=== PATIENT | male | born 1990 | race American Indian/Alaskan Native ===

== ENCOUNTER 2016-05-16 10:05 | Emergency (ER) | payer SELFPAY ==
[2016-05-16 10:24] VITALS: BMI 32.1
[2016-05-16 10:27] VITALS: RESP 16; TEMP 98; O2SAT 100
--- NOTE | 2016-05-16 11:04 | ED PDOC ---
Arrival/HPI - General Historian: Patient - History of Present Illness Severity Level: 7 <Armando Joseph - Last Filed: 05/16/16 10:55> <Benito Valentin - Last Filed: 05/16/16 11:54> - General Chief Complaint: Lower Extremity Problem/Injury Time Seen by Provider: 05/16/16 10:37 - History of Present Illness Narrative History of Present Illness (Text): 05/16/16 10:55 This is a 25 year old male presenting with right anterior knee pain x 5 days. The patient reports mechanical fall on ice 5 days ago and impact with a shopping cart to the knee at work 2 days ago. The patient reports pain with ambulation and weight bearing. The patient has been managing the pain at home with OTC avil with good effect. Patient is ambulatory. (Armando Joseph) Past Medical History - Provider Review Nursing Documentation Reviewed: Yes - Travel History Have you recently traveled outside [place] w/in the past 3 mons?: No - Past History Past History: Non-Contributing - Infectious Disease Hx of Infectious Diseases: None - Tetanus Immunization Tetanus Immunization: Unknown - Musculoskeletal/Rheumatological Hx Falls: No - Psychiatric Hx Depression: No Hx Emotional Abuse: No Hx Physical Abuse: No Hx Substance Use: No - Suicidal Assessment Feels Threatened In Home Enviroment: No <Armando Joseph - Last Filed: 05/16/16 10:55> Family/Social History - Physician Review Nursing Documentation Reviewed: Yes Family/Social History: No Known Family HX Smoking Status: Never Smoked Hx Alcohol Use: Yes Frequency of alcohol use: Socially Hx Substance Use: No Hx Substance Use Treatment: No <Armando Joseph - Last Filed: 05/16/16 10:55> Allergies/Home Meds <Armando Joseph - Last Filed: 05/16/16 10:55> <Benito Valentin - Last Filed: 05/16/16 11:54> Allergies/Adverse Reactions: Allergies No Known Allergies Allergy (Verified 05/16/16 10:24) Home Medications: Home Meds Medication Instructions Recorded Confirmed No Known Home Med 05/16/16 05/16/16 Review of Systems - Physician Review All systems were reviewed & negative as marked: Yes - Review of Systems Constitutional: absent: Fatigue Eyes: absent: Vision Changes ENT: absent: Hearing Changes Respiratory: absent: SOB, Cough Cardiovascular: absent: Chest Pain, Palpitations Gastrointestinal: absent: Abdominal Pain, Vomiting Genitourinary Male: absent: Dysuria, Frequency Musculoskeletal: Arthralgias, Joint Swelling. absent: Back Pain, Neck Pain, Myalgias Skin: absent: Rash, Pruritis Neurological: absent: Headache, Dizziness Endocrine: absent: Diaphoresis Hemo/Lymphatic: absent: Adenopathy Psychiatric: absent: Anxiety <Armando Joseph - Last Filed: 05/16/16 10:55> Physical Exam Vital Signs Reviewed: Yes Temperature: Afebrile Blood Pressure: Normal Pulse: Regular Respiratory Rate: Normal Appearance: Positive for: Well-Appearing, Non-Toxic, Comfortable Pain Distress: None Mental Status: Positive for: Alert and Oriented X 3 - Systems Exam Head: Present: Atraumatic, Normocephalic Pupils: Present: PERRL Extroacular Muscles: Present: EOMI Mouth: Present: Moist Mucous Membranes Respiratory/Chest: Present: Clear to Auscultation, Good Air Exchange. No: Respiratory Distress, Accessory Muscle Use Cardiovascular: Present: Regular Rate and Rhythm, Normal S1, S2. No: Murmurs Abdomen: Present: Normal Bowel Sounds. No: Tenderness, Distention, Peritoneal Signs Upper Extremity: Present: Normal Inspection, Normal ROM, NORMAL PULSES, Neurovascularly Intact. No: Cyanosis, Edema, Tenderness, Swelling Lower Extremity: Present: Normal Inspection, NORMAL PULSES, Normal ROM (able to fully weight bear and ambulate without issue, no ligamentous laxity on exam, no palpable step-off in patella, itact quadricept function without pain, ne joint effusion), Tenderness (anterior patella), Neurovascularly Intact. No: Edema, Swelling, Temperature Abnormalties Neurological: Present: GCS=15, CN II-XII Intact Skin: Present: Warm Psychiatric: Present: Alert, Oriented x 3 <Armando Joseph - Last Filed: 05/16/16 10:55> Vital Signs Temp Pulse Resp BP Pulse Ox 05/16/16 11:51 78 16 140/63 100 05/16/16 10:26 98.0 F 72 16 136/68 100 Medical Decision Making <Armadno Joseph - Last Filed: 05/16/16 10:55> <Benito Valentin - Last Filed: 05/16/16 11:54> ED Course and Treatment: 05/16/16 11:23 Impression: This is a 25 year old male presenting with right anterior knee pain x 5 days. The patient appears in no acute distress. No acute pain. Patient ambulatory. Differential: Contusion Plan: Continue home anti-inflammatory medications Prior Visits: Progress Note: The patient was seen and examined at the bedside. Patient in no acute distress. Patient able to stand on right leg and fully support weight without issue. Patient ambulatory without issue. The patient has no ligamentous laxity and has a structurally sound knee. The patient was advised to weight bear as tolerated, continue home anti-inflammatory medications. The patient is fit to return to work. The patient is agreeable with the discharge plan. The patient was medically stable for discharge. (Armando Joseph) A 25 year old male with right knee pain. In agreement with resident note, which includes further HPI details. Patient was seen and evaluated with resident, came up with plan and treatment together. (Benito Valentin) - PA / FILTRATION SUPERVISOR / Resident Statement / has reviewed & agrees with the documentation as recorded. / has examined the patient and agrees with the treatment plan. <Benito Valentin - Last Filed: 05/16/16 11:54> Disposition/Present on Arrival - Present on Arrival Any Indicators Present on Arrival: No History of DVT/PE: No History of Uncontrolled Diabetes: No Urinary Catheter: No History of Decub. Ulcer: No History Surgical Site Infection Following: None - Disposition Have Diagnosis and Disposition been Completed?: Yes Disposition Time: 11:15 Patient Plan: Discharge <Armando Joseph - Last Filed: 05/16/16 10:55> <Benito Valentin - Last Filed: 05/16/16 11:54> - Disposition Diagnosis: Knee pain, acute Disposition: HOME/ ROUTINE Condition: GOOD Discharge Instructions (ExitCare): Knee Pain (ED) Print Language: BULGARIAN Additional Instructions: 1.) Weight bearing as tolerated 2.) Safe for return to work 3.) Continue home anti-inflammatory medications in accordance with medication directions 4.) Follow up with PMD or in the [facility]. 5.) If symptoms return, please return to the ED for evaluation. 6.) If pain does no decrease please follow up with orthopedics (Dr. Quiros) Referrals: Enzo Quiros MD [Staff Provider] - Follow up with primary
[2016-05-16 11:52] VITALS: BP 140/63; PULSE 78
== END 2016-05-16 11:51 | disposition home or self-care (01) ==
LOC: ED 10:05
DX: M25.561 Pain in right knee (principal)

== ENCOUNTER 2016-09-24 02:22 | Emergency (ER) | payer SELFPAY ==
[2016-09-24 02:23] VITALS: BMI 32.1
[2016-09-24 02:48] VITALS: BP 130/83; PULSE 84; RESP 16; TEMP 98.8; O2SAT 99
--- NOTE | 2016-09-24 03:08 | ED PDOC ---
Arrival/HPI - General Chief Complaint: Abnormal Skin Integrity Time Seen by Provider: 09/24/16 03:08 Historian: Patient - History of Present Illness Narrative History of Present Illness (Text): 09/24/16 03:08 26 y/o male, no significant pmh, nkda, last tetanus under 4 years ago, c/o lt. hand 3rd digit finger laceration by knife x 3 hours. Pt. has no numbness or tingling, no difficulty moving the finger, no oozing or discharge, no other medical or psychological complaints. Past Medical History - Provider Review Nursing Documentation Reviewed: Yes - Past History Past History: Non-Contributing - Infectious Disease Hx of Infectious Diseases: None - Tetanus Immunization Tetanus Immunization: Unknown - Musculoskeletal/Rheumatological Hx Falls: No - Psychiatric Hx Depression: No Hx Emotional Abuse: No Hx Physical Abuse: No Hx Substance Use: No - Anesthesia Hx Anesthesia: No - Suicidal Assessment Feels Threatened In Home Enviroment: No Family/Social History - Physician Review Nursing Documentation Reviewed: Yes Family/Social History: Unknown Family HX Smoking Status: Never Smoked Hx Alcohol Use: Yes Frequency of alcohol use: Socially Hx Substance Use: No Hx Substance Use Treatment: No Allergies/Home Meds Allergies/Adverse Reactions: Allergies No Known Allergies Allergy (Verified 09/24/16 02:45) Review of Systems - Review of Systems Constitutional: absent: Fatigue, Fevers Eyes: absent: Vision Changes ENT: absent: Hearing Changes Respiratory: absent: SOB, Cough Cardiovascular: absent: Chest Pain Gastrointestinal: absent: Abdominal Pain, Nausea, Vomiting Skin: Laceration. absent: Rash, Pruritis, Skin Lesions, Abscess, Ulcer, Cellulitis Neurological: absent: Headache, Dizziness, Gait Changes, Speech Changes Physical Exam Vital Signs Reviewed: Yes Vital Signs Temp Pulse Resp BP Pulse Ox 09/24/16 02:47 98.8 F 84 16 130/83 99 Temperature: Afebrile Blood Pressure: Normal Pulse: Regular Respiratory Rate: Normal Appearance: Positive for: Well-Appearing, Non-Toxic, Comfortable Pain Distress: None Mental Status: Positive for: Alert and Oriented X 3 - Systems Exam Head: Present: Atraumatic, Normocephalic Pupils: Present: PERRL Extroacular Muscles: Present: EOMI Conjunctiva: Present: Normal Mouth: Present: Moist Mucous Membranes Neck: Present: Normal Range of Motion Respiratory/Chest: Present: Clear to Auscultation, Good Air Exchange. No: Respiratory Distress, Accessory Muscle Use Cardiovascular: Present: Regular Rate and Rhythm, Normal S1, S2. No: Murmurs Abdomen: Present: Normal Bowel Sounds. No: Tenderness, Distention, Peritoneal Signs Back: Present: Normal Inspection Upper Extremity: Present: Normal Inspection, Other (Lt. hand 3rd digit dorsum PIPJ region visible v-shaped approx. 2cm skin flapping laceration with no visible foreign bodies, FROM without limitation, sensation intact, motor 5/5, + Radial pulse, capillary refill< 2 seconds, neurovascular intact. ). No: Cyanosis, Edema Lower Extremity: Present: Normal Inspection. No: Edema Neurological: Present: GCS=15, CN II-XII Intact, Speech Normal Skin: Present: Warm, Dry, Normal Color. No: Rashes Psychiatric: Present: Alert, Oriented x 3, Normal Insight, Normal Concentration Medical Decision Making ED Course and Treatment: 09/24/16 03:35 -keflex, -sensation intact, motor 5/5, wound irrigate with 1000cc of normal saline, clean with betadine, 1% lidocaine injected approx. 0.5cc with local anesthetic obtained, 5-0 made 5 sutures with good approximation, hemostasis obtained, bacitracin and gauze dressing, sensation intact, motor 5/5, finger splint applied with neurovasular intact. -Discharge home with keflex, bacitracin ointment, take tylenol or motrin for pain as needed, follow up with your own pmd and hand specialist within 2 days, return to the ER for any new or worsening signs or symptoms. - PA / RAW FINISH MILL OPERATOR / Resident Statement MD/DO has reviewed & agrees with the documentation as recorded. Disposition/Present on Arrival - Present on Arrival Any Indicators Present on Arrival: No History of DVT/PE: No History of Uncontrolled Diabetes: No Urinary Catheter: No History of Decub. Ulcer: No History Surgical Site Infection Following: None - Disposition Have Diagnosis and Disposition been Completed?: Yes Diagnosis: Finger laceration Disposition: HOME/ ROUTINE Disposition Time: 03:36 Patient Plan: Discharge Condition: IMPROVED Additional Instructions: -Discharge home with keflex, bacitracin ointment, take tylenol or motrin for pain as needed, follow up with your own pmd and hand specialist within 2 days, return to the ER for any new or worsening signs or symptoms. Prescriptions: Bacitracin Ointment [Bacitracin] 1 appful TOP BID #15 g Cephalexin [cephalexin] 500 mg PO TID #24 cap Referrals: Nhung Vaughn MD [Non-Staff] - Follow up with primary [facility] [Outside] - Follow up with primary Forms: [employer] ([place]ian), WORK NOTE
== END 2016-09-24 03:35 | disposition home or self-care (01) ==
LOC: ED 02:22
DX: S61.213A Laceration without foreign body of left middle finger without damage to nail, initial encounter (principal); W26.0XXA Contact with knife, initial encounter

== ENCOUNTER 2016-10-05 15:48 | Emergency (ER) | payer OTHER ==
[2016-10-05 15:49] VITALS: BMI 32.1
[2016-10-05 16:00] VITALS: BP 138/87; PULSE 64; RESP 18; TEMP 98.4; O2SAT 100
--- NOTE | 2016-10-05 16:14 | ED PDOC ---
Arrival/HPI - General Chief Complaint: Suture/Staple Removal Time Seen by Provider: 10/05/16 15:55 Historian: Patient - History of Present Illness Narrative History of Present Illness (Text): 10/05/16 16:15 26-year-old male presents today for suture removal to the left third finger. Patient states approximately 10 days ago he sustained a laceration with a knife to the finger. He denies numbness weakness or tingling in the extremities. Denies decreased range of motion of the finger. Denies fevers or chills. Patient denies pain. Patient states he's been keeping the wound covered at all times. Patient states he does not use his finger splint anymore as he needs his finger for work. Past Medical History - Provider Review Nursing Documentation Reviewed: Yes - Travel History Have you recently traveled outside [place] w/in the past 3 mons?: No - Past History Past History: Non-Contributing - Infectious Disease Hx of Infectious Diseases: None - Tetanus Immunization Tetanus Immunization: Up to Date - Musculoskeletal/Rheumatological Hx Falls: No - Psychiatric Hx Depression: No Hx Emotional Abuse: No Hx Physical Abuse: No Hx Substance Use: No - Anesthesia Hx Anesthesia: No - Suicidal Assessment Feels Threatened In Home Enviroment: No Family/Social History - Physician Review Nursing Documentation Reviewed: Yes Family/Social History: Unknown Family HX Smoking Status: Never Smoked Hx Alcohol Use: Yes Hx Substance Use: No Hx Substance Use Treatment: No Allergies/Home Meds Allergies/Adverse Reactions: Allergies No Known Allergies Allergy (Verified 10/05/16 15:57) Review of Systems - Review of Systems Constitutional: absent: Fatigue, Fevers Respiratory: absent: SOB, Cough Cardiovascular: absent: Chest Pain, Palpitations Gastrointestinal: absent: Abdominal Pain, Vomiting Musculoskeletal: absent: Arthralgias Skin: Laceration Physical Exam Vital Signs Reviewed: Yes Vital Signs Temp Pulse Resp BP Pulse Ox 10/05/16 15:58 98.4 F 64 18 138/87 100 Temperature: Afebrile Blood Pressure: Normal Pulse: Regular Respiratory Rate: Normal Appearance: Positive for: Well-Appearing, Non-Toxic, Comfortable Pain Distress: None Mental Status: Positive for: Alert and Oriented X 3 - Systems Exam Head: Present: Atraumatic Mouth: Present: Moist Mucous Membranes Neck: Present: Normal Range of Motion Respiratory/Chest: Present: Clear to Auscultation Cardiovascular: Present: Regular Rate and Rhythm Upper Extremity: Present: Normal ROM, NORMAL PULSES, Neurovascularly Intact, Capillary Refill < 2s, Other (Left third finger: There are [address] over PIP joint of left 3rd finger; + maceration, no erythema; full rom of finger ; no discharge. sensation and distal pulses intact. cap refill <2. ). No: Tenderness, Swelling, Erythema, Deformity Neurological: Present: GCS=15 Skin: Present: Warm, Dry Psychiatric: Present: Alert, Oriented x 3 Medical Decision Making ED Course and Treatment: 10/05/16 16:19 Patient is nontoxic well-appearing in no distress. Vital signs are stable. Suture removal: 3 of the 5 sutures have been removed from the left third finger. [address] as there is slight dehiscence of the wound. Due to maceration I will place a finger splint and allow 2-3 more days for healing. I have advised the patient to use the finger splint and avoid wrapping the wound up and a tight band aid. advised f/u with Wound center/surgeon. Wound without signs of infection. Patient verbalizes understanding of discharge instructions and need for immediate followup. all aspects of this case were discussed the attending of record. Impression: Wound check, suture removal Keep wound clean and dry. use fingersplint return in 3 days for re-evaluation and sutures removal of the remaining to sutures. Follow up with the primary care physician follow up with the wound care center return if symptoms worsen,persist or if new symptoms develop. Disposition/Present on Arrival - Present on Arrival Any Indicators Present on Arrival: No History of DVT/PE: No History of Uncontrolled Diabetes: No Urinary Catheter: No History of Decub. Ulcer: No History Surgical Site Infection Following: None - Disposition Have Diagnosis and Disposition been Completed?: Yes Diagnosis: Encounter for wound re-check, Encounter for removal of sutures Disposition: HOME/ ROUTINE Disposition Time: 16:13 Patient Plan: Discharge Condition: GOOD Discharge Instructions (ExitCare): Finger Laceration (ED) Additional Instructions: Keep wound clean and dry. use fingersplint return in 3 days for re-evaluation and sutures removal of the remaining to sutures. Follow up with the primary care physician follow up with the wound care center return if symptoms worsen,persist or if new symptoms develop. Referrals: [facility] [Outside] - Follow up with primary Gabriela Harrell MD [Staff Provider] - Follow up with primary Julio Cesar Park MD [Staff Provider] - Follow up with primary Juan A Briggs MD [Medical Doctor] - Follow up with primary Forms: [employer] ([place])
== END 2016-10-05 16:30 | disposition home or self-care (01) ==
LOC: ED 15:48
DX: Z48.02 Encounter for removal of sutures (principal)

== ENCOUNTER 2016-10-08 11:59 | Emergency (ER) | payer OTHER ==
[2016-10-08 12:00] VITALS: BMI 32.1
[2016-10-08 12:19] VITALS: BP 145/81; PULSE 100; RESP 16; TEMP 98.3; O2SAT 98
--- NOTE | 2016-10-08 12:29 | ED PDOC ---
Arrival/HPI - General Chief Complaint: Suture/Staple Removal Time Seen by Provider: 10/08/16 12:00 Historian: Patient - History of Present Illness Narrative History of Present Illness (Text): 10/08/16 12:26 26 y/o male, here for the suture removal from the lt. hand 3rd digit. Pt. was seen here initially for suture removal which part of it was removed, no numbness or tingling, no difficulty moving the injure finger including bending and extending, no fever or chills, no other medical or psychological complaints. Past Medical History - Provider Review Nursing Documentation Reviewed: Yes - Past History Past History: Non-Contributing - Infectious Disease Hx of Infectious Diseases: None - Tetanus Immunization Tetanus Immunization: Up to Date - Musculoskeletal/Rheumatological Hx Falls: No - Psychiatric Hx Substance Use: No - Anesthesia Hx Anesthesia: No - Suicidal Assessment Feels Threatened In Home Enviroment: No Family/Social History - Physician Review Nursing Documentation Reviewed: Yes Family/Social History: Unknown Family HX Smoking Status: Never Smoked Hx Alcohol Use: Yes Hx Substance Use: No Hx Substance Use Treatment: No Allergies/Home Meds Allergies/Adverse Reactions: Allergies No Known Allergies Allergy (Verified 10/05/16 15:57) Review of Systems - Physician Review All systems were reviewed & negative as marked: Yes - Review of Systems Constitutional: absent: Fatigue, Fevers ENT: absent: Hearing Changes Respiratory: absent: SOB, Cough Cardiovascular: absent: Chest Pain Gastrointestinal: absent: Abdominal Pain Musculoskeletal: absent: Arthralgias, Back Pain, Myalgias Skin: Laceration (scar). absent: Rash, Pruritis, Skin Lesions, Abscess, Ulcer, Cellulitis Neurological: absent: Headache, Dizziness Physical Exam Vital Signs Reviewed: Yes Vital Signs Temp Pulse Resp BP Pulse Ox 10/08/16 12:00 98.3 F 100 H 16 145/81 98 Temperature: Afebrile Blood Pressure: Normal Pulse: Regular Respiratory Rate: Normal Appearance: Positive for: Well-Appearing, Non-Toxic, Comfortable Pain Distress: None Mental Status: Positive for: Alert and Oriented X 3 - Systems Exam Head: Present: Atraumatic, Normocephalic Neck: Present: Normal Range of Motion, Trachea Midline. No: Meningeal Signs, MIDLINE TENDERNESS, Lymphadenopathy Respiratory/Chest: Present: Clear to Auscultation, Good Air Exchange. No: Respiratory Distress, Accessory Muscle Use, Wheezes, Rhonchi Cardiovascular: Present: Regular Rate and Rhythm, Normal S1, S2. No: Murmurs Abdomen: Present: Normal Bowel Sounds. No: Tenderness, Distention Upper Extremity: Present: Other (Lt. hand 3rd digit with visible 2 sutures remaining, no deformity, FROM without limitation, sensation intact, motor 5/5, + radial pulse, capillary refill< 2 seconds, neurovascular intact. ) Neurological: Present: GCS=15, Speech Normal Skin: Present: Warm, Dry, Normal Color. No: Rashes Psychiatric: Present: Alert, Oriented x 3, Normal Insight, Normal Concentration Medical Decision Making ED Course and Treatment: 10/08/16 12:29 -2 sutures removed completely, wound healing well and dry, -Discharge home with education on follow up with your own pmd within 2 days, return to the ER for any new or worsening signs or symptoms. - PA / ASSET ACCOUNTANT / Resident Statement MD/ has reviewed & agrees with the documentation as recorded. Disposition/Present on Arrival - Present on Arrival Any Indicators Present on Arrival: No History of DVT/PE: No History of Uncontrolled Diabetes: No Urinary Catheter: No History of Decub. Ulcer: No History Surgical Site Infection Following: None - Disposition Have Diagnosis and Disposition been Completed?: Yes Diagnosis: Visit for suture removal Disposition: HOME/ ROUTINE Disposition Time: 12:29 Patient Plan: Discharge Condition: GOOD Additional Instructions: -Discharge home with education on follow up with your own pmd within 2 days, return to the ER for any new or worsening signs or symptoms. Referrals: PCP,NO [Primary Care Provider] - Follow up with primary Enzo Quiros MD [Staff Provider] - Follow up with primary Forms: [employer] (Bhutanese), WORK NOTE
== END 2016-10-08 12:32 | disposition home or self-care (01) ==
LOC: ED 11:59
DX: Z48.02 Encounter for removal of sutures (principal)

== ENCOUNTER 2017-04-06 23:15 | Emergency (ER) | payer OTHER ==
[2017-04-06 23:16] VITALS: BMI 32.1
--- NOTE | 2017-04-07 00:03 | ED PDOC ---
Arrival/HPI - General Chief Complaint: Upper Extremity Problem/Injury Time Seen by Provider: 04/06/17 23:54 Historian: Patient - History of Present Illness Narrative History of Present Illness (Text): 04/07/17 00:00 A 26 year old male, with no significant past medical history, presents to the emergency department complaining of right shoulder pain. 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 The patient notes that he has a history of a tear in that area. The patient denies fevers, chills, headache, dizziness, chest pain , shortness of breath, dyspnea on exertion, cough, abdominal pain, nausea, vomiting, diarrhea, back pain, neck pain, urinary/bowel changes, or any other complaint. Time/Duration: Other (This Evening) Symptom Onset: Sudden Symptom Course: Unchanged Activities at Onset: Rest, Light Context: Work Past Medical History - Provider Review Nursing Documentation Reviewed: Yes - Past History Past History: Non-Contributing - Infectious Disease Hx of Infectious Diseases: None - Tetanus Immunization Tetanus Immunization: Up to Date - Musculoskeletal/Rheumatological Hx Falls: No - Psychiatric Hx Depression: No Hx Emotional Abuse: No Hx Physical Abuse: No Hx Substance Use: No - Anesthesia Hx Anesthesia: No - Suicidal Assessment Feels Threatened In Home Enviroment: No Family/Social History - Physician Review Nursing Documentation Reviewed: Yes Family/Social History: No Known Family HX Smoking Status: Never Smoked Hx Alcohol Use: Yes Frequency of alcohol use: Socially Hx Substance Use: No Hx Substance Use Treatment: No Allergies/Home Meds Allergies/Adverse Reactions: Allergies No Known Allergies Allergy (Verified 10/05/16 15:57) Review of Systems - Physician Review All systems were reviewed & negative as marked: Yes - Review of Systems Constitutional: absent: Fevers, Night Sweats Respiratory: absent: SOB Cardiovascular: absent: Chest Pain, VICTORIA Gastrointestinal: absent: Abdominal Pain, Stool Changes, Diarrhea, Nausea, Vomiting Genitourinary Male: absent: Urinary Output Changes Musculoskeletal: Other (Right shoulder pain). absent: Back Pain, Neck Pain Neurological: absent: Headache, Dizziness Physical Exam Vital Signs Reviewed: Yes Vital Signs Temp Pulse Resp BP Pulse Ox 04/07/17 01:16 99.0 F 70 19 128/69 100 04/06/17 23:49 99.1 F 110 H 18 138/84 98 04/06/17 23:16 99.0 F 78 16 127/72 98 Temperature: Afebrile Blood Pressure: Normal Pulse: Tachycardic Respiratory Rate: Normal Appearance: Positive for: Well-Appearing, Non-Toxic, Comfortable Pain Distress: None Mental Status: Positive for: Alert and Oriented X 3 - Systems Exam Head: Present: Atraumatic, Normocephalic Pupils: Present: PERRL Extroacular Muscles: Present: EOMI Conjunctiva: Present: Normal Mouth: Present: Moist Mucous Membranes Neck: Present: Normal Range of Motion Respiratory/Chest: Present: Clear to Auscultation, Good Air Exchange. No: Respiratory Distress, Accessory Muscle Use Cardiovascular: Present: Regular Rate and Rhythm, Normal S1, S2. No: Murmurs Abdomen: Present: Normal Bowel Sounds. No: Tenderness, Distention, Peritoneal Signs Back: Present: Normal Inspection Upper Extremity: Present: Normal Inspection. No: Cyanosis, Edema Lower Extremity: Present: Tenderness (Point tenderness over the right AC joint. ). No: Edema Neurological: Present: GCS=15, CN II-XII Intact, Speech Normal Skin: Present: Warm, Dry, Normal Color. No: Rashes Psychiatric: Present: Alert, Oriented x 3, Normal Insight, Normal Concentration Medical Decision Making ED Course and Treatment: 04/07/17 00:04 Impression: A 26 year old male presents to the emergency department complaining of right shoulder pain s/p pushing carts at his job. Plan: -- Right Shoulder X-Ray -- Reassess and disposition Progress Notes: - RAD Interpretation Radiology Orders: 04/07/17 00:00 SHOULDER RIGHT [RAD] Stat - Scribe Statement The provider has reviewed the documentation as recorded by the Scribe Gisela Mendenhall Provider Scribe Attestation: All medical record entries made by the Scribe were at my direction and personally dictated by me. I have reviewed the chart and agree that the record accurately reflects my personal performance of the history, physical exam, medical decision making, and the department course for this patient. I have also personally directed, reviewed, and agree with the discharge instructions and disposition. Disposition/Present on Arrival - Present on Arrival Any Indicators Present on Arrival: No History of DVT/PE: No History of Uncontrolled Diabetes: No Urinary Catheter: No History of Decub. Ulcer: No History Surgical Site Infection Following: None - Disposition Have Diagnosis and Disposition been Completed?: Yes Diagnosis: Shoulder strain Disposition: HOME/ ROUTINE Disposition Time: 02:00 Condition: GOOD Discharge Instructions (ExitCare): Muscle Strain (DC) Additional Instructions: use sling follow up with dr pete Forms: [employer] ([place]an), WORK NOTE
[2017-04-07 02:00] VITALS: BP 128/69; PULSE 70; RESP 19; TEMP 99; O2SAT 100
--- NOTE | 2017-04-07 09:44 | RAD ---
PROCEDURE: Radiographs of the Right Shoulder HISTORY: pain COMPARISON: Right shoulder radiographs 07/16/2011. FINDINGS: BONES: A 5-6 mm curvilinear radiodensity seen cephalad to the greater tuberosity of the proximal right humerus. This likely represents calcification within local soft tissues, likely the distal rotator cuff though a tiny chip or avulsion fracture is not completely excluded. This is not appreciated in the prior examination. Further clinical correlation is recommended. No large fracture is identified and there is no dislocation. JOINTS: Normal. Glenohumeral and acromioclavicular joints preserved. No osteoarthritis. SOFT TISSUES: As above. OTHER FINDINGS: None. IMPRESSION: Limited interval heterotopic soft tissue calcification is favored over chip or avulsion fracture related to the greater tuberosity of the proximal right humerus. No large fracture is identified and there is no dislocation appreciated. Further clinical correlation is advised.
== END 2017-04-07 02:02 | disposition home or self-care (01) ==
LOC: ED 23:15
DX: S46.911A Strain of unspecified muscle, fascia and tendon at shoulder and upper arm level, right arm, initial encounter (principal); X50.9XXA Other and unspecified overexertion or strenuous movements or postures, initial encounter; Y99.0 Civilian activity done for income or pay

== ENCOUNTER 2017-07-02 21:27 | Emergency (ER) | payer OTHER ==
[2017-07-02 21:57] VITALS: BMI 33.0
[2017-07-02 22:00] VITALS: RESP 18
--- NOTE | 2017-07-02 22:14 | ED PDOC ---
Arrival/HPI - General Chief Complaint: Rib Injury Time Seen by Provider: 07/02/17 22:07 Historian: Patient - History of Present Illness Narrative History of Present Illness (Text): 07/02/17 22:09 26yo male with no Past medical history who present with left sided anterior rib pain x 3days. States he had a cold 2weeks ago. Notes that the cough improved , but still having intermittent nonproductive cough. Notes that the left rib pain is with cough. He denies shortness of breath, diaphoresis, fever,chills, sick contact, travel, any other complaint. Past Medical History - Provider Review Nursing Documentation Reviewed: Yes - Past History Past History: Non-Contributing - Infectious Disease Hx of Infectious Diseases: None - Tetanus Immunization Tetanus Immunization: Up to Date - Musculoskeletal/Rheumatological Hx Falls: No - Psychiatric Hx Depression: No Hx Emotional Abuse: No Hx Physical Abuse: No Hx Substance Use: No - Anesthesia Hx Anesthesia: No - Suicidal Assessment Feels Threatened In Home Enviroment: No Family/Social History - Physician Review Nursing Documentation Reviewed: Yes Family/Social History: Unknown Family HX Smoking Status: Never Smoked Hx Alcohol Use: Yes Frequency of alcohol use: Socially Hx Substance Use: No Hx Substance Use Treatment: No Allergies/Home Meds Allergies/Adverse Reactions: Allergies No Known Allergies Allergy (Verified 10/05/16 15:57) Review of Systems - Physician Review All systems were reviewed & negative as marked: Yes - Review of Systems Constitutional: Normal Eyes: Normal ENT: Normal Respiratory: Normal Cardiovascular: Normal Gastrointestinal: Normal Genitourinary Male: Normal Musculoskeletal: Arthralgias (Left rib pain) Skin: Normal Neurological: Normal Endocrine: Normal Hemo/Lymphatic: Normal Psychiatric: Normal Physical Exam Vital Signs Reviewed: Yes Vital Signs Temp Pulse Resp BP Pulse Ox 07/02/17 23:16 98.9 F 88 18 143/89 99 07/02/17 21:57 99.6 F 105 H 18 148/108 H 98 Temperature: Afebrile Blood Pressure: Hypertensive Pulse: Tachycardic Respiratory Rate: Normal Appearance: Positive for: Well-Appearing, Non-Toxic, Comfortable Pain Distress: None Mental Status: Positive for: Alert and Oriented X 3 - Systems Exam Head: Present: Atraumatic, Normocephalic Pupils: Present: PERRL Extroacular Muscles: Present: EOMI Conjunctiva: Present: Normal Mouth: Present: Moist Mucous Membranes Neck: Present: Normal Range of Motion Respiratory/Chest: Present: Clear to Auscultation, Good Air Exchange, Tender to Palpation (Left anterior ribs). No: Respiratory Distress, Accessory Muscle Use , Wheezes, Decreased Breath Sounds, Rales, Retracting, Rhonchi, Tachypneic Cardiovascular: Present: Regular Rate and Rhythm, Normal S1, S2. No: Murmurs Abdomen: No: Tenderness, Distention, Peritoneal Signs Back: Present: Normal Inspection Upper Extremity: Present: Normal Inspection. No: Cyanosis, Edema Lower Extremity: Present: Normal Inspection. No: Edema Neurological: Present: GCS=15, CN II-XII Intact, Speech Normal Skin: Present: Warm, Dry, Normal Color. No: Rashes Psychiatric: Present: Alert, Oriented x 3, Normal Insight, Normal Concentration Medical Decision Making ED Course and Treatment: 07/03/17 01:23 Left rib/chest xray No acute fracture/dislocation noted. No PTX Result was DW the pt and he was DC home with naprosyn, flexeril and promethazine. Referred to his PMD. - RAD Interpretation Radiology Orders: 07/02/17 22:07 RIBS LEFT & PA CHEST [RAD] Stat - Medication Orders Current Medication Orders: Discontinued Medications Ketorolac Tromethamine (Toradol) 60 mg IM STAT STA Stop: 07/02/17 22:09 Last Admin: 07/02/17 22:27 Dose: 60 mg MAR Pain Assessment Document 07/02/17 22:27 CNR (Rec: 07/02/17 22:27 CNR [id number]) Pain Reassessment Is this a pain reassessment? Yes IM Administration Charges Document 07/02/17 22:27 CNR (Rec: 07/02/17 22:27 CNR [id number]) Injection Site MAR Injection Site Right Vastus Lateralis Charges for Administration # of IM Administrations 1 Disposition/Present on Arrival - Present on Arrival Any Indicators Present on Arrival: No History of DVT/PE: No History of Uncontrolled Diabetes: No Urinary Catheter: No History of Decub. Ulcer: No History Surgical Site Infection Following: None - Disposition Have Diagnosis and Disposition been Completed?: Yes Diagnosis: Rib pain, Cough Disposition: HOME/ ROUTINE Disposition Time: 23:00 Patient Plan: Discharge Condition: STABLE Discharge Instructions (ExitCare): Cough in Adults, Chest Pain (ED) Additional Instructions: Follow up with your doctor Return to Emergency department for any new or worsening symptoms Prescriptions: Cyclobenzaprine [Cyclobenzaprine HCl] 10 mg PO TID #12 tab Naproxen [Naprosyn] 500 mg PO BID #20 tablet Promethazine [Phenergan Syrup] 6.25 mg PO Q6 #100 cup Referrals: PCP,NO [Primary Care Provider] - [place] up with [place] [facility] [place] [facility] [place] - Follow up with primary Forms: [employer] (Nepali)
[2017-07-02 23:17] VITALS: BP 143/89; PULSE 88; TEMP 98.9; O2SAT 99
--- NOTE | 2017-07-03 09:57 | RAD ---
PROCEDURE: Radiographs of the Chest and Left Ribs. HISTORY: left rib pain COMPARISON: None available. TECHNIQUE: Frontal radiograph of the chest and multiple oblique radiographs of the left ribs were obtained. FINDINGS: LEFT RIBS: No fracture or focal lesion visualized. LUNGS: Clear. PLEURA: No pneumothorax or pleural fluid. CARDIOVASCULAR: Normal sized heart. No pulmonary vascular congestion. OTHER FINDINGS: None. IMPRESSION: Unremarkable radiographs of the chest and left ribs. No left rib fracture.
== END 2017-07-02 23:16 | disposition home or self-care (01) ==
LOC: ED 21:27
DX: R05 Cough (principal); R07.81 Pleurodynia
CPT/HCPCS: 71101; 96372; 99282; J1885